=== PATIENT | female | born 1990 | race Caucasian/White ===

== ENCOUNTER 2016-12-19 06:55 | Inpatient (IN) | payer MEDICAID ==
[~2016-12-19] VITALS: Ht 162.6 cm; Wt 65.8 kg
[2016-12-19] VITALS (16 sets, daily range): BP systolic 117–169; BP diastolic 50–112
[~2016-12-19 06:55] MED LIST: IRONTAB35; PRENTAB40
[2016-12-19] MEDS ORDERED: TERBUTALINE SULFATE 1 MG/ML 1ML VIAL SC ONE (07:01)
[2016-12-19] MEDS ORDERED: SUCCINYLCHOLINE CHLORIDE 20 MG/ML 10ML VIAL IV ONE (07:30)
[2016-12-19] MEDS ORDERED: PROPOFOL 10 MG/ML 20 ML IV ONE (07:34)
[2016-12-19] MEDS ORDERED: GLYCOPYRROLATE 0.2 MG/ML 1ML VIAL IV ONE (07:34)
[2016-12-19] MEDS ORDERED: OXYTOCIN 10UNIT/ML 1ML VIAL IV ONE (07:34)
[2016-12-19] MEDS ORDERED: NEOSTIGMINE 1 MG/ML INJ (10mg/10ML VIAL) IV ONE (07:34)
[2016-12-19] MEDS ORDERED: fentaNYL CITRATE 100 MCG/2 ML VL ONE ×2 (07:56→08:08)
[2016-12-19 08:39] LABS: Urine Bilirubin Negative (Negative); Urine Color Yellow (Yellow); Urine Glucose Normal (Normal); Urine Ketone Negative (Negative); Urine Mucus FEW (None Seen); Urine Nitrite Negative (Negative); Urine RBC 204 /hpf (0 - 4); Urine Squamous Epithelial Cell FEW /hpf (<5); Urine Urobilinogen Normal (Negative)
[2016-12-19 08:42] LABS: Urine Blood 2+ /uL (Negative)
[2016-12-19] MEDS ORDERED: LACTATED RINGER'S 1,000 ML IV SCH (08:43)
[2016-12-19] MEDS ORDERED: ONDANSETRON HCL 4 MG/2 ML VIAL IV PRN (08:45)
[2016-12-19] MEDS: HYDROmorphone HCL 2 MG/ML VL IV PRN ×6 (08:57→18:40)
[2016-12-19] MEDS ORDERED: hydrALAZINE HCL 20 MG/ML VL IV PRN ×2 (09:00→11:30)
[2016-12-19] MEDS ORDERED: ePHEDrine SULFATE 50 MG/ML AMP IV PRN (09:00)
[2016-12-19] MEDS ORDERED: ONDANSETRON HCL 4 MG/2 ML VIAL IV ONE (09:00)
[2016-12-19 09:53] LABS: DEFINITIVE VIEW TRANSMISSION; Hematocrit 29.6 % (36.0-46.0); Hemoglobin 9.4 g/dL (12.2-16.2); Mean Corpuscular Hemoglobin 23.5 pg (28.0-32.0); Mean Corpuscular Hgb Conc. 31.6 g/dL (32.0-36.0); Mean Corpuscular Volume 74.6 fL (80.0-100.0); Mean Platelet Volume 9.6 fL (7.4-10.4); Platelet Count (auto) 272 10^3/uL (140-450); Red Cell Distribution Width 18.6 % (11.6-16.0); SUSPECT VIEW TRANSMISSION; White Blood Cell 20.1 10^3/uL (4.4-10.8)
[2016-12-19 09:55] LABS: Metamyelocytes % 0; Myelocytes % 0; Promyelocytes % 0; Reactive Lymphocytes 0
[2016-12-19 09:57] LABS: Albumin 1.8 g/dL (3.4-5.0); BUN/Creatinine Ratio 9.3; Bilirubin, Total 0.2 mg/dL (0.2-1.0); Calcium 7.8 mg/dL (8.5-10.1); Potassium 3.7 mmol/L (3.5-5.1); Total Protein 6.5 g/dL (6.4-8.2)
[2016-12-19 10:01] LABS: Partial Thromboplastin Time 26.4 sec (22.64-33.71); Prothrombin Time 9.6 sec (9.37-12.3)
[2016-12-19 10:05] LABS: INR 0.89 (0.9-1.15)
[2016-12-19 13:36] LABS: Anisocytosis Moderate; Hypochromia Moderate; Microcytosis Moderate
[2016-12-19 13:37] LABS: Burr Cells FEW; Large Platelets FEW; Platelet Estimate Adequa
[2016-12-19] MEDS: ceFAZolin 1GM/50ML D5W 50 ML IV SCH ×2 (13:51→21:43)
[2016-12-19] MEDS ORDERED: KETOROLAC TROMETH 30 MG/ML 1ML VIAL IV PRN (19:00)
[2016-12-20] VITALS (9 sets, daily range): BP systolic 111–150; BP diastolic 66–88
[2016-12-20] MEDS: HYDROmorphone HCL 2 MG/ML VL IV PRN (04:38)
[2016-12-20] MEDS: ceFAZolin 1GM/50ML D5W 50 ML IV SCH (05:37)
[2016-12-20 06:06] LABS: HIV-1/O/2 Scrn w/Reflex Non Reactive (Non Reactive)
[2016-12-20 06:20] LABS: Basophils # (auto) 0 uL; Basophils % (auto) 0.3 % (0.0-2.0); DEFINITIVE VIEW TRANSMISSION; Eosinophils # (auto) 0 uL; Eosinophils % (auto) 0.4 % (0.0-7.0); Hematocrit 25.5 % (36.0-46.0); Hemoglobin 8.2 g/dL (12.2-16.2); Lymphocytes # (auto) 1.7 uL; Lymphocytes % (auto) 12.8 % (10.0-50.0); Mean Corpuscular Hemoglobin 23.7 pg (28.0-32.0); Mean Corpuscular Hgb Conc. 32.1 g/dL (32.0-36.0); Mean Corpuscular Volume 73.8 fL (80.0-100.0); Mean Platelet Volume 9.2 fL (7.4-10.4); Monocytes # (auto) 0.6 uL; Monocytes % (auto) 4.5 % (0.0-12.0); Platelet Count (auto) 248 10^3/uL (140-450); Red Cell Distribution Width 18.5 % (11.6-16.0); White Blood Cell 13.5 10^3/uL (4.4-10.8)
[2016-12-20] MEDS: LACTATED RINGER'S 1,000 ML IV SCH ×2 (07:03→17:03)
[2016-12-20] MEDS ORDERED: BISACODYL 10 MG RECT SUPP PR PRN (13:30)
[2016-12-20] MEDS: FERROUS SULFATE 325 MG TAB PO SCH ×2 (14:49→21:53)
[2016-12-20] MEDS: IBUPROFEN 800 MG TAB PO PRN (16:38)
[2016-12-20] MEDS: SIMETHICONE 80 MG CHEWABLE TABLET PO SCH ×2 (17:33→21:52)
[2016-12-20] MEDS: DOCUSATE SOD 100 MG CAP PO SCH (21:53)
[2016-12-20] MEDS: HYDROcodone-ACET 10/325MG TAB PO PRN (21:53)
[2016-12-21 03:00] VITALS: BP 119/57
[2016-12-21] MEDS: LACTATED RINGER'S 1,000 ML IV SCH ×2 (03:03→13:03)
[2016-12-21] MEDS: SIMETHICONE 80 MG CHEWABLE TABLET PO SCH ×4 (06:06→22:14)
[2016-12-21] MEDS: IBUPROFEN 800 MG TAB PO PRN (06:06)
[2016-12-21] MEDS: FERROUS SULFATE 325 MG TAB PO SCH ×3 (06:06→22:14)
[2016-12-21 08:12] VITALS: BP 117/79
[2016-12-21] MEDS: DOCUSATE SOD 100 MG CAP PO SCH ×2 (09:54→22:14)
[2016-12-21] MEDS: DOCUSATE CALCIUM 240 MG CAP PO SCH (09:54)
[2016-12-21 12:10] VITALS: BP 112/80
[2016-12-21 16:23] VITALS: BP 129/79
[2016-12-21] MEDS: HYDROcodone-ACET 10/325MG TAB PO PRN (17:45)
[2016-12-21 18:45] VITALS: BP 122/70
[2016-12-21 23:15] VITALS: BP 122/76
[2016-12-22 03:00] VITALS: BP 121/74
[2016-12-22] MEDS: SIMETHICONE 80 MG CHEWABLE TABLET PO SCH (06:00)
[2016-12-22] MEDS: FERROUS SULFATE 325 MG TAB PO SCH (06:13)
[2016-12-22] MEDS: LACTATED RINGER'S 1,000 ML IV SCH ×2 (07:37→09:03)
[2016-12-22 08:00] VITALS: BP 123/76
[2016-12-22] MEDS ORDERED: TETANUS-DIPTH-ACEL PERTUSSIS 0.5ML SYRG IM ONE ×2 (08:15)
[2016-12-22] MEDS: IBUPROFEN 800 MG TAB PO PRN (09:05)
[2016-12-22] MEDS: DOCUSATE CALCIUM 240 MG CAP PO SCH (10:00)
[2016-12-22] MEDS: DOCUSATE SOD 100 MG CAP PO SCH (10:00)
[2016-12-22 11:07] VITALS: BP 119/89
== END 2016-12-22 11:08 | disposition home or self-care (01) | DRG 540 ==
LOC: LDRP 06:55
PROVIDERS: ADMIT Specialist; ATTEND Specialist
PROC: 10D00Z1 Extraction of Products of Conception, Low, Open Approach (ICD-10-PCS; principal; 2016-12-19 07:34)
DX: O34.211 Maternal care for low transverse scar from previous cesarean delivery (principal); O45.93 Premature separation of placenta, unspecified, third trimester; O60.14X0 Preterm labor third trimester with preterm delivery third trimester, not applicable or unspecified; O76 Abnormality in fetal heart rate and rhythm complicating labor and delivery; Z37.0 Single live birth; Z3A.36 36 weeks gestation of pregnancy
CPT/HCPCS: 36415; 51702; 59025; 80053; 80307; 81001; 81002; 85007; 85025; 85027; 85610; 85730; 86592; 86762; 86850; 86900; 86901; 87340; 90715; 94762; 96361; 96366; 96372; 96374; 96375; J0330; J0690; J1885; J2704

== ENCOUNTER 2017-03-19 16:17 | Emergency (ER) | payer MEDICAID ==
[~2017-03-19] VITALS: Ht 160 cm; Wt 61.2 kg
[2017-03-19 16:39] VITALS: BP 153/100
== END 2017-03-19 17:33 | disposition home or self-care (01) ==
LOC: ER 16:24
DX: K02.9 Dental caries, unspecified (principal)